=== PATIENT | male | born 1995 | race African-American/Black ===

== ENCOUNTER 2018-12-27 22:33 | Emergency (ER) | payer OTHER ==
[~2018-12-27] VITALS: Ht 172.7 cm; Wt 73.0 kg
[2018-12-27 23:23] LABS: CLARITY URINE CLEAR (CLEAR); COLOR URINE DARK YELLOW (YELLOW); KETONES URINE 1+ (NEGATIVE); LEUKOCYTE ESTERASE URINE NEGATIVE (NEGATIVE); NITRITE URINE NEGATIVE (NEGATIVE); OCCULT BLOOD URINE NEGATIVE (NEGATIVE); PROTEIN URINE 1+ (NEGATIVE)
[2018-12-28] MEDS ORDERED: CEFTRIAXONE SODIUM 250 MG/VIAL IM ONE (01:15)
[2018-12-28] MEDS ORDERED: AZITHROMYCIN 500 MG TABLET PO ONE (01:15)
[2018-12-28] MEDS ORDERED: IBUPROFEN 600MG TABLET PO ONE (01:15)
[2018-12-28 01:50] VITALS: BP 120/85
[2018-12-31 04:12] LABS: CHLAMYDIA TRACHOMATIS NAA Negative (Negative); NEISSERIA GONORRHOEAE NAA Negative (Negative)
== END 2018-12-28 01:51 | disposition home or self-care (01) ==
LOC: ER 22:33
DX: M54.5 Low back pain (principal); Z20.2 Contact with and (suspected) exposure to infections with a predominantly sexual mode of transmission; F12.10 Cannabis abuse, uncomplicated; F17.210 Nicotine dependence, cigarettes, uncomplicated
CPT/HCPCS: 81003; 87491; 87591; 96372; 99283; J0696

== ENCOUNTER 2019-03-10 00:45 | Emergency (ER) | payer OTHER ==
[~2019-03-10] VITALS: Ht 172.7 cm; Wt 75.0 kg
[2019-03-10] MEDS ORDERED: IBUPROFEN 600MG TABLET PO ONE (01:45)
[2019-03-10] MEDS ORDERED: AMOXICILLIN 500 MG CAPSULE PO ONE (03:15)
[2019-03-10 03:33] VITALS: BP 135/78
== END 2019-03-10 03:34 | disposition home or self-care (01) ==
LOC: ER 00:45
DX: J03.90 Acute tonsillitis, unspecified (principal); R01.1 Cardiac murmur, unspecified; F15.10 Other stimulant abuse, uncomplicated; F17.210 Nicotine dependence, cigarettes, uncomplicated
CPT/HCPCS: 87070; 87430; 99283

== ENCOUNTER 2019-07-24 23:41 | Emergency (ER) | payer SELFPAY ==
[~2019-07-24] VITALS: Ht 175.3 cm; Wt 73.0 kg
[2019-07-25] MEDS ORDERED: AMOXICILLIN/POTASSIUM CLAVULANATE 875/125MG TAB PO ONE (01:45)
[2019-07-25] MEDS ORDERED: HYDROCODONE/ACETAMINOPHEN 5/325MG TABLET PO ONE (01:45)
[2019-07-25 02:45] VITALS: BP 141/81
== END 2019-07-25 02:45 | disposition home or self-care (01) ==
LOC: ER 23:41
DX: R68.84 Jaw pain (principal); K04.7 Periapical abscess without sinus; F17.200 Nicotine dependence, unspecified, uncomplicated; F12.10 Cannabis abuse, uncomplicated
CPT/HCPCS: 99283

== ENCOUNTER 2021-09-05 06:13 | Emergency (ER) | payer OTHER ==
[~2021-09-05] VITALS: Ht 172.7 cm; Wt 72.0 kg
[2021-09-05] MEDS ORDERED: KETOROLAC 15MG/ML VIAL IM ONE (09:15)
[2021-09-05 11:30] VITALS: BP 117/64
== END 2021-09-05 12:25 | disposition home or self-care (01) ==
LOC: ER 06:13
DX: R07.89 Other chest pain (principal); G89.11 Acute pain due to trauma; J98.11 Atelectasis; R00.1 Bradycardia, unspecified; V43.92XA Unspecified car occupant injured in collision with other type car in traffic accident, initial encounter; Y93.89 Activity, other specified; Y92.488 Other paved roadways as the place of occurrence of the external cause
CPT/HCPCS: 71045; 71250; 93005; 96372; 99284; J1885